=== PATIENT | female | born 1985 ===

== ENCOUNTER 2017-11-20 16:35 | Emergency (ER) | payer MEDICAID ==
[2017-11-20 16:46] VITALS: BP 131/94
--- NOTE | 2017-11-20 17:48 | UC ---
Psychiatric Complaint HPI - HPI Summary HPI Summary: from 1 year ago---has increasing stresses with friction between him and her and teenage daughter has not sleep in several days has difficulty concentrating---spoke to PCP who advised her to come to [facility] for mental health evaluation---patient came to urgent care instead of the hospital - History Of Current Complaint Chief Complaint: [facility] Stated Complaint: PERSONAL Time Seen by Provider: 11/20/17 16:51 Hx Obtained From: Patient Hx Last Menstrual Period: 3 days ago ?: No Onset/Duration: Gradual Onset, Worse Since - past 3-5 days Timing: Constant Severity Initially: Mild Severity Currently: Moderate Character: Depressed, Anxious, Frustrated Aggravating Factor(s): Recent Stress Alleviating Factor(s): Nothing Associated Signs And Symptoms: Sleep Disturbance - Allergies/Home Medications Allergies/Adverse Reactions: Allergies Allergy/AdvReac Type Severity Reaction Status Date / Time Penicillins Allergy Unknown Verified 11/20/17 16:46 Reaction Details Home Medications: Home Medications Valerian Root 1 tab PO DAILY 11/20/17 [History Confirmed 11/20/17] medroxyPROGESTERone ACETATE* [DEPO-Provera*] 1 dose IM ONCE 11/20/17 [History Confirmed 11/20/17] PMH/Surg Hx/FS Hx/Imm Hx Previously Healthy: Yes - Surgical History Surgical History: None - Family History Known Family History: Positive: None - Social History Occupation: Employed Full-time Lives: With Family Alcohol Use: Rare Substance Use Type: None Smoking Status (MU): Current Every Day Smoker Cessation Counseling: Patient Advised to Stop Review of Systems Constitutional: Negative Skin: Negative Eyes: Negative ENT: Negative Respiratory: Negative Cardiovascular: Negative Gastrointestinal: Negative Genitourinary: Negative Motor: Negative Neurovascular: Negative Musculoskeletal: Negative Neurological: Negative Psychological: Anxious, Depressed Is Patient Immunocompromised?: No All Other Systems Reviewed And Are Negative: Yes Physical Exam Triage Information Reviewed: Yes Appearance: Well-Appearing, No Pain Distress, Well-Nourished Vital Signs: Initial Vital Signs Temp 99.7 F 11/20/17 16:41 Pulse 117 11/20/17 16:41 Resp 18 11/20/17 16:41 BP 131/94 11/20/17 16:41 Pulse Ox 100 11/20/17 16:41 Vital Signs Reviewed: Yes Eye Exam: Normal Eyes: Positive: Conjunctiva Clear ENT Exam: Normal ENT: Positive: Normal ENT inspection, Hearing grossly normal. Negative: Tonsillar swelling, Tonsillar exudate, Trismus, Muffled voice, Hoarse voice Dental Exam: Normal Neck exam: Normal Neck: Positive: Supple, Nontender Respiratory Exam: Normal Respiratory: Positive: Chest non-tender, No respiratory distress, No accessory muscle use Cardiovascular Exam: Normal Cardiovascular: Positive: RRR, Pulses Normal, Brisk Capillary Refill Musculoskeletal Exam: Normal Musculoskeletal: Positive: Strength Intact, ROM Intact, No Edema Neurological Exam: Normal Neurological: Positive: Alert, Muscle Tone Normal Psychological Exam: Normal Skin Exam: Normal Psych Complaint Course/Dx - Course Course Of Treatment: transfer to [facility] via ambulance patient understands plan of care for evaluation and treatment planning - Differential Dx/Diagnosis Provider Diagnoses: Insomnia, anxiety - Physician Notifications Time Discussed With Above Provider: 18:30 - Retport given to Adan GARCIA as provider not available Instructed by Provider To: Transfer Discharge - Discharge Plan Condition: Good Disposition: TRANS HIGHER LVL OF CARE FAC Referrals: Mari Haney DO [Primary Care Provider] -
== END 2017-11-20 18:09 | disposition short-term general hospital (02) ==
LOC: UCEAST 16:35
DX: G47.00 Insomnia, unspecified (principal); F41.9 Anxiety disorder, unspecified; Z88.0 Allergy status to penicillin; F17.200 Nicotine dependence, unspecified, uncomplicated
CPT/HCPCS: 99213; G0463

== ENCOUNTER 2017-11-20 17:58 | Emergency (ER) | payer MEDICAID ==
--- NOTE | 2017-11-20 18:33 | ED ---
Psychiatric Complaint - HPI Summary HPI Summary: 32 female sent over by for mental health eval. Patient states she has been dealing with several stressors lately after from her one year ago. Increased stress between him and her and teenage daughter. Patient has not been able to sleep, has been up since 5pm yesterday. Spoke with her PCP who advised [place] come [place] [facility] [place] heat[place]h eval. Patient has no psych history. Has appointment this thursday however did not feel she could wait that long. Denies suicidal ideation/homicidal ideation. No alcohol or drug use. No medications or PMHx. Denies any other complaints. No hallucinations or hearing things. - History Of Current Complaint Chief Complaint: EDGeneral Time Seen by Provider: 11/20/17 18:09 Hx Obtained From: Patient Hx Last Menstrual Period: 3 days ago Onset/Duration: Sudden Onset, Gradual Onset, Lasting Weeks, Still Present, Worse Since Timing: Constant Severity Initially: Moderate Severity Currently: Severe Character: Depressed, Anxious Aggravating Factor(s): Recent Stress Alleviating Factor(s): Nothing Associated Signs And Symptoms: Positive: Negative Related History: Negative For: Prior Psychiatric Issues Has Suicidal: Denies: Thoughts, With A Plan Has Homicidal: Denies: Thoughts, With A Plan - Allergies/Home Medications Allergies/Adverse Reactions: Allergies Allergy/AdvReac Type Severity Reaction Status Date / Time Penicillins Allergy Unknown Verified 11/20/17 16:46 Reaction Details PMH/Surg Hx/FS Hx/Imm Hx Endocrine/Hematology History: Denies: Hx Anticoagulant Therapy, Hx Diabetes Cardiovascular History: Denies: Hx Hypertension Respiratory History: Denies: Hx Asthma - Surgical History Surgery Procedure, Year, and Place: none - Immunization History Immunizations Up to Date: Yes Infectious Disease History: No Infectious Disease History: Denies: Traveled Outside the [place] in Last 30 Days - Family History Known Family History: Positive: None - Social History Alcohol Use: Rare Substance Use Type: Reports: None Smoking Status (MU): Current Every Day Smoker Review of Systems Constitutional: Negative Eyes: Negative Cardiovascular: Negative Respiratory: Negative Musculoskeletal: Negative Positive: Anxious, Depressed, Other - insomnia All Other Systems Reviewed And Are Negative: Yes Physical Exam Triage Information Reviewed: Yes Vital Signs On Initial Exam: Initial Vitals Temp Pulse Resp BP Pulse Ox 98.6 F 99 18 118/80 99 11/20/17 18:01 11/20/17 18:01 11/20/17 18:01 11/20/17 18:01 11/20/17 18:01 Vital Signs Reviewed: Yes Appearance: Positive: Well-Appearing - flat affect, tearful, appears depressed, No Pain Distress, Well-Nourished Skin: Positive: Warm, Skin Color Reflects Adequate Perfusion, Dry Eyes: Positive: Normal, EOMI, SARIKA, Conjunctiva Clear ENT: Positive: Normal ENT inspection, Hearing grossly normal, Pharynx normal Neck: Positive: Supple, Nontender Respiratory/Lung Sounds: Positive: Clear to Auscultation, Breath Sounds Present. Negative: Rales, Rhonchi, Wheezes Cardiovascular: Positive: Normal, RRR, Pulses are Symmetrical in both Upper and Lower Extremities. Negative: Murmur, Rub Abdomen Description: Positive: Nontender Bowel Sounds: Positive: Present Musculoskeletal: Positive: Normal, Strength/ROM Intact Neurological: Positive: Normal, Sensory/Motor Intact, Alert, Oriented to Person Place, Time Psychiatric: Positive: Depressed - Walt Coma Scale Best Eye Response: 4 - Spontaneous Best Motor Response: 6 - Obeys Commands Best Verbal Response: 5 - Oriented Coma Scale Total: 15 Diagnostics - Vital Signs Vital Signs Temp Pulse Resp BP Pulse Ox 11/20/17 18:01 98.6 F 99 18 118/80 99 - Laboratory Result Diagrams: 11/20/17 18:53 11/20/17 18:53 Lab Statement: Any lab studies that have been ordered have been reviewed, and results considered in the medical decision making process. Course/Dx - Course Course Of Treatment: patient was medically cleared labs and urinalysis obtained and unremarkable. appears to be suffering from depression and insomnia due to increased stressors. patient will have mental health eval. given one xanax to help with anxiety and insomnia. after speaking with ADELIA Navarro, decided by Dr Michaud patient will be discharged home to see outpatient psych/staffing executive and pcp to being medications. No other concerns at this time. - Differential Dx/Clinical Impression Provider Diagnosis: Anxiety, Depression, Insomnia - Physician Notifications Discussed Care Of Patient With: Dr Jaswant Hubbard Instructed by Provider To: Have Pt Call For Appt. - outpatient Patient Is Medically Stable For: Psych Evaluation Discharge - Discharge Plan Condition: Stable Disposition: HOME Patient Education Materials: Anxiety (ED) Referrals: Mari Haney DO [Primary Care Provider] - Additional Instructions: Per completion of a mental health evaluation, you are cleared for release and do not require inpatient psychiatric hospitalization at this time. Please go to nearest emergency room or call 911 if safety concerns arise or condition worsens. Important Phone Numbers: [facility]~~ ph:[phone] Suicide Prevention and Crisis Services~~~~~~~~~~~~~~~~~~~~~~~ ph:[phone] National Suicide Prevention Lifeline~~~~~~~~~~~~~~~~~~~~~~~ ~~ ph:203- TALK (2058) [facility]~~~~~~~~~~~~~~~~~~ ~~ ph:[phone] Alcoholics Anonymous~~~~~~~~~~~~~~~~~~~~~~~~~~~~~~~~~~~~~~~~~~~~~~~~~ ph:[phone] [facility]~~~~~~ ~~ ph:[phone] [place] [employer] ph:[phone] Recommended that Pt follow up with primary care doctor to try to obtain an appointment prior to the one scheduled for next Thursday. Also recommended, Pt follow through on her plans to commence therapy with a private therapist.
[2017-11-20 19:05] LABS: ABS Basophils 0.1 10^3/ul (0-0.2); ABS Eosinophils 0.3 10^3/ul (0-0.6); ABS Lymphocytes 2.8 10^3/ul (1.0-4.8); ABS Monocytes 0.7 10^3/ul (0-0.8); ABS Neutrophils 4.8 10^3/ul (1.5-7.7); ABS Nucleated RBC 0 10^3/ul; Eosinophil % 3.6 % (0-6); Hematocrit 38 % (35-47); Hemoglobin 13.1 g/dl (12.0-16.0); Lymphocyte % 32.4 % (25-47); Mean Corpuscular HGB Conc 35 g/dl (31-36); Mean Corpuscular Hemoglobin 31 pg (27-31); Mean Corpuscular Volume 90 fL (80-97); Mean Platelet Volume 8 um3 (7.4-10.4); Nucleated Red Blood Cells % 0; Platelet Count 241 10^3/ul (150-450); Red Blood Count 4.18 10^6/ul (4.0-5.4); Red Cell Distribution Width 12 % (10.5-15); White Blood Count 8.8 10^3/ul (3.5-10.8)
[2017-11-20 19:21] LABS: EGFR Non-African American 148.3 (>60)
[2017-11-20] MEDS ORDERED: ALPRAZolam TAB* 0.5 MG PO ONE (21:17)
[2017-11-20 22:12] VITALS: BP 0/0
== END 2017-11-20 22:15 | disposition home or self-care (01) ==
LOC: ED 17:58
DX: F41.9 Anxiety disorder, unspecified (principal); F32.9 Major depressive disorder, single episode, unspecified; G47.00 Insomnia, unspecified; F17.200 Nicotine dependence, unspecified, uncomplicated
CPT/HCPCS: 36415; 80053; 80320; 80329; 84443; 85025; 99284; A9270-GY; G0480